=== PATIENT | male | born 1965 | race Hispanic/Latino ===

== ENCOUNTER 2018-08-16 20:57 | Emergency (ER) | payer OTHER ==
[2018-08-16 21:09] VITALS: BMI 24.3
--- NOTE | 2018-08-16 21:12 | ED PDOC ---
Arrival/HPI - General Chief Complaint: Cardiac Arrest Time Seen by Provider: 08/16/18 20:59 Historian: EMS - Critical Care Critical Care Minutes: 30 minutes - History of Present Illness Narrative History of Present Illness (Text): 08/16/18 21:08 53 year old male, with unknown medical history, presents to the emergency department via EMS for cardiac arrest. EMS informs that patient was last seen conscious 2.5 hours ago. Patient was found unresponsive in the basement and EMS began life support measures 30 minutes prior to arrival at emergency department. BLS was on scene and pt was transferred to ALS w/ intubation. EMS informs patient was Asystolic throughout transport. 4 doses of epinephrin given while in transport. EMS informs that end-tidal was 10. Bicarb was given, elevating end-tidal to 40, dropping back to 10 where it remained throughout transport. HPI and ROS limited due to patient condition. Time/Duration: Prior to Arrival Context: Home Past Medical History - Provider Review Nursing Documentation Reviewed: Yes Family/Social History - Physician Review Nursing Documentation Reviewed: Yes Family/Social History: No Known Family HX Allergies/Home Meds Allergies/Adverse Reactions: Allergies Unobtainable Allergy (Verified 08/16/18 21:06) Home Medications: Home Meds Medication Instructions Recorded Confirmed Unobtainable 08/16/18 08/16/18 Review of Systems - Review of Systems Systems not reviewed;Unavailable: Acuity of Condition Physical Exam - Physical Exam Narrative Physical Exam (Text): 08/16/18 21:12 Head: Atraumatic. Normocephalic. Eyes: 7mm Dilated pupils bilaterally, non-reactive, fixed. ENT: [id number] in place. Neck: Supple. No signs of trauma Cardiovascular: Asystole on monitor. Oscar device providing good compressions. Pulseless on ryhmn and pulse checks Pulmonary/Chest: Good bilateral lung sounds. No spontaneous respirations. Abdominal: Soft and non-distended. No organomegaly. Extremities: No edema. Skin: Mottled. Neurological: non-responsive to stimuli. No spontaneous movement Physical Exam Limitations: Clinical Condition Vital Signs Reviewed: Yes Temperature: Hypothermic Pulse: Pulseless Medical Decision Making ED Course and Treatment: 08/16/18 20:57 Recieved pt from ALS: Last seen 2hrs prior to being found down. Pulseless and Asystolic without spontaneous respirations throughout transport. 30 minute transport. ETT placed by EMS w/ good Co2 and b/l lung sounds. On my exam: good b/l lung sounds w/ BVM. Pupils non-reactive, fixed and dilated on my exam. No signs of trauma. Mottling. Pt was previously given Bicarb w/ previous etco2 <10. w/ Bicarb to 40, but returned to 10. 1 Epi given, previously given bicarb x1 and epi x4. 08/16/18 21:00 Pulse check, Rythmn check: asystole on the monitor, pulseless. No cardiac wall motion on US. No spontaneous movements or respirations. Pupils remain fixed and dilated. 1 Epi Given 08/16/18 21:04 Pulse check, Rythmn check: asystole on the monitor, pulseless. No spontaneous movements or respirations. Pupils remain fixed and dilated Pt remains asystolic on the monitor without cardiac wall motion on US. x6 epi given without ROSC. Time of called 08/16/18 21:20 Family counseled. Patient's family informs patient had a history of heart murmur, and PMD is Dr. Gannon. 08/16/18 21:[address] Gannon who will try to look up the patient's chart. - Scribe Statement The provider has reviewed the documentation as recorded by the Scribe Mickey Camacho Provider Scribe Attestation: All medical record entries made by the Scribe were at my direction and personally dictated by me. I have reviewed the chart and agree that the record accurately reflects my personal performance of the history, physical exam, medical decision making, and the department course for this patient. I have also personally directed, reviewed, and agree with the discharge instructions and disposition. Disposition/Present on Arrival - Present on Arrival Any Indicators Present on Arrival: No - Disposition Have Diagnosis and Disposition been Completed?: Yes Diagnosis: Cardiac arrest Disposition: WITH WITHOUT AUTOPSY Disposition Time: 21:24 Patient Problems: Current Active Problems Problem Status Onset Cardiac arrest Acute Condition: Referrals: PCP,NO [Non-Staff] - Follow up with primary Forms: [employer] ([place])
[2018-08-16 21:17] VITALS: PULSE 0; TEMP 97.5
== END 2018-08-17 06:26 ==
LOC: ED 20:57
DX: I46.9 Cardiac arrest, cause unspecified (principal); R01.1 Cardiac murmur, unspecified